=== PATIENT | male | born 1975 | race African-American/Black ===

== ENCOUNTER 2017-01-22 21:03 | Emergency (ER) | payer SELFPAY | END 2017-01-22 21:32 | disposition home or self-care (01) | LOC: ER 21:03 | PROC: 2W3JX1Z Immobilization of Right Finger using Splint (ICD-10-PCS; principal; 2017-01-22) | DX: S69.91XA Unspecified injury of right wrist, hand and finger(s), initial encounter (principal); J45.909 Unspecified asthma, uncomplicated; Z88.8 Allergy status to other drugs, medicaments and biological substances; Z91.013 Allergy to seafood; W19.XXXA Unspecified fall, initial encounter | CPT/HCPCS: 73130-RT; 99283 ==